=== PATIENT | female | born 1980 | race Caucasian/White ===

== ENCOUNTER 2022-05-29 23:16 | Emergency (ER) | payer OTHER ==
[~2022-05-29] VITALS: Ht 160 cm; Wt 81.6 kg
[2022-05-29 23:28] VITALS: BP_SYST 135
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
--- NOTE | 2022-05-30 00:20 | NUR ---
MD MOORE AT BEDSIDE.
[2022-05-30 00:33] LABS: BASOPHILS # (AUTO) 0.1 K/uL (0.0-0.2); BASOPHILS % (AUTO) 0.6 % (0.0-2.0); HEMATOCRIT 33.4 % (36-48); LYMPHOCYTES # (AUTO) 2.1 K/uL (1.0-5.5); LYMPHOCYTES % (AUTO) 11.1 % (20.5-51.5); MEAN CORPUSCULAR HEMOGLOBIN 25 pg (27-31); MEAN CORPUSCULAR HGB CONC 33 % (32-36); MEAN CORPUSCULAR VOLUME 77 fL (79.0-98.0); MONOCYTES # (AUTO) 1.5 K/uL (0.0-1.0); MONOCYTES % (AUTO) 7.9 % (1.7-9.3); NEUTROPHILS # (AUTO) 15.2 K/uL (1.8-7.7); NEUTROPHILS % (AUTO) 80.4 % (40.0-70.0); PLATELET COUNT (AUTO) 360 K/uL (130-430); RED BLOOD CELL COUNT(AUTO) 4.35 MIL/uL (4.2-6.2)
[2022-05-30 00:43] LABS: CALCIUM 8.6 mg/dL (8.4-11.0); CREATININE 0.88 mg/dL (0.55-1.30); POTASSIUM 3.7 mmol/L (3.5-5.1)
[2022-05-30 00:54] LABS: ALBUMIN 3.4 g/dL (3.4-4.8); TOTAL BILIRUBIN 0.2 mg/dL (0.0-1.0)
[2022-05-30 01:18] LABS: ALCOHOL, BLOOD < 3 mg/dL (<10)
--- NOTE | 2022-05-30 01:40 | NUR ---
Patient to bed 7
--- NOTE | 2022-05-30 02:00 | NUR ---
Consent obtained for CT w/contrast.
[2022-05-30 02:10] LABS: PROTHROMBIN TIME 10.1 SECS (9.5-12.5)
--- NOTE | 2022-05-30 02:10 | NUR ---
Pt taken to CT for imaging.
[2022-05-30 02:12] LABS: BILIRUBIN,URINE NEGATIVE (NEGATIVE); BLOOD, URINE 3+ (NEGATIVE); GLUCOSE,URINE 3+ (NEGATIVE); KETONES,URINE TRACE (NEGATIVE); LEUKOCYTE ESTERASE ,URINE NEGATIVE (NEGATIVE); NITRITE, URINE NEGATIVE (NEGATIVE); PROTEIN URINE TRACE (NEGATIVE); UROBILINOGEN,URINE 0.2 (0.2-1.0)
[2022-05-30 02:25] LABS: CLARITY/URINE HAZY (CLEAR); COLOR,URINE YELLOW (YELLOW)
[2022-05-30 02:26] LABS: RBC,URINE >100 /HPF (0-3)
[2022-05-30 02:27] LABS: BACTERIA,URINE None Seen /HPF (None Seen)
[2022-05-30 02:28] LABS: BARBITURATE, URINE NEGATIVE (NEG <=200); BENZODIAZEPINE, URINE NEGATIVE (NEG <=150); CANNABINOID, URINE NEGATIVE (NEG <=50); COCAINE, URINE NEGATIVE (NEG <=150); METHAMPHETAMINES SCREEN,URINE NEGATIVE (NEG <=500); OPIATE, URINE NEGATIVE (NEG <=100); PHENCYCLIDINE SCREEN,URINE NEGATIVE (NEG <=25); URINE AMPHETAMINE NEGATIVE (NEG <=500); URINE METHADONE NEGATIVE (NEG <=200)
[2022-05-30 02:29] LABS: UR TRICYCLIC ANTIDEPRESSANTS NEGATIVE (NEG <=300); URINE OXYCODONE SCREEN NEGATIVE (NEG <=100); URINE PROPOXYPHENE SCREEN NEGATIVE (NEG <=300)
[2022-05-30] MEDS ORDERED: MORPHINE 4 MG INJ. 4 MG/ML VIAL IVP ONE (03:00)
[2022-05-30 03:54] LABS: HEMATOCRIT 29.8 % (36-48); HEMOGLOBIN 9.9 g/dL (12.0-16.0); MEAN CORPUSCULAR HEMOGLOBIN 26 pg (27-31); MEAN CORPUSCULAR HGB CONC 33 % (32-36); MEAN CORPUSCULAR VOLUME 77 fL (79.0-98.0); PLATELET COUNT (AUTO) 378 K/uL (130-430); RED BLOOD CELL COUNT(AUTO) 3.88 MIL/uL (4.2-6.2); RED CELL DISTRIBUTION WIDTH 17.5 % (9.0-15.0); WHITE BLOOD COUNT (AUTO) 15.8 K/uL (4.8-10.8)
--- NOTE | 2022-05-30 04:15 | NUR ---
Pt resting comfortably in bed, no signs of distress noted. Breathing adequately on RA. at bedside.
[2022-05-30] MEDS ORDERED: NACL 0.9% 1,000 ML IV ONE (05:00)
--- NOTE | 2022-05-30 06:00 | NUR ---
Orthostatics obtained; MD Rodrigez aware of results.
[2022-05-30 06:35] LABS: HEMATOCRIT 26.3 % (36-48); HEMOGLOBIN 8.9 g/dL (12.0-16.0); MEAN CORPUSCULAR HEMOGLOBIN 26 pg (27-31); MEAN CORPUSCULAR HGB CONC 34 % (32-36); MEAN CORPUSCULAR VOLUME 76 fL (79.0-98.0); PLATELET COUNT (AUTO) 301 K/uL (130-430); RED BLOOD CELL COUNT(AUTO) 3.45 MIL/uL (4.2-6.2); RED CELL DISTRIBUTION WIDTH 17.3 % (9.0-15.0)
--- NOTE | 2022-05-30 07:04 | NUR ---
Report endorsed to ELADIO Barrios.
--- NOTE | 2022-05-30 07:25 | NUR ---
Patient A/Ox4, VSS, resp even and unlabored. Pain 8/10 at this time; requesting pain medication. ER MD Mullins notified. Patient resting in bed with side rails raised with at bed side. Nad noted at this time. Will continue to monitor.
--- NOTE | 2022-05-30 07:50 | NUR ---
Covid swab done and sent to lab
[2022-05-30] MEDS ORDERED: MORPHINE 2 MG/ML INJ. SYRINGE IVP ONE (08:00)
--- NOTE | 2022-05-30 10:41 | NUR ---
Patient resting comfortably in bed with side rails raise. No acute distress noted. Vital signs within normal range. Will continue to monitor.
[2022-05-30] MEDS ORDERED: ONDANSETRON HCL 4 MG/2 ML VIAL IVP PRN (11:15)
[2022-05-30] MEDS ORDERED: MORPHINE 4 MG INJ. 4 MG/ML VIAL IVP PRN (11:15)
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
--- NOTE | 2022-05-30 12:44 | NUR ---
Patient resting comfortably with side rails raised. Patient's at bedside. No acute distress noted. Vital signs within normal range. Will continue to monitor.
[2022-05-30 13:17] VITALS: BP_SYST 97
== END 2022-05-30 13:17 | disposition short-term general hospital (02) ==
LOC: SED 23:16
DX: S36.892A Contusion of other intra-abdominal organs, initial encounter (principal); S20.219A Contusion of unspecified front wall of thorax, initial encounter; S10.91XA Abrasion of unspecified part of neck, initial encounter; D72.829 Elevated white blood cell count, unspecified; D64.9 Anemia, unspecified; E87.2 Acidosis; V49.40XA Driver injured in collision with unspecified motor vehicles in traffic accident, initial encounter; Y93.89 Activity, other specified; Y92.89 Other specified places as the place of occurrence of the external cause; Y99.8 Other external cause status
CPT/HCPCS: 99291; 87426; 80307; 80053; 81000; 85014; 85025; 85049; 85610; 85730; 86886; 86900; 86901; 87086; 84484; 85048; 36415; 83605; 70450; 96374; 71045; 96361; 96375; 93005; 73130; 71260; 72125; 74177; 96376; 81025; 83051; 76376; G0482; J2405; J2270 ×2; Q9967; J7030